=== PATIENT | female | born 1970 | race Caucasian/White ===

== ENCOUNTER 2020-12-15 10:57 | Emergency (ER) | payer OTHER ==
[~2020-12-15] VITALS: Ht 165.1 cm; Wt 107.5 kg
[~2020-12-15 10:57] MED LIST: AMITRIPTYLINE H25 MG PO; FOLBIC RF TABL1 EACH PO; IRON18 MG PO; PROVENTIL HFA6.7 GM INH
[2020-12-15] MEDS ORDERED: LEVOTHYROXINE25 MCG PO (11:19)
[2020-12-15] MEDS ORDERED: PROPRANOLOL HCL20 MG PO (11:19)
[2020-12-15] MEDS ORDERED: OSTERA TABLET1 EACH PO (11:20)
--- NOTE | 2020-12-15 12:37 | EKG ---
[facility] [address] [facility] [place] [address] Signed Sinus bradycardia Nonspecific ST abnormality Abnormal ECG No previous ECGs available Confirmed by CANDY CHAIREZ MD ([id number]) on 12/15/2020 12:37:26 PM Electronically Signed By: CANDY CHAIREZ MD 12/15/20 1237 PATIENT NAME: TIFFANI MCINTOSH Electrocardiogram DATE OF : 70 PHYSICIAN: CANDY CHAIREZ MD REPORT #: [id number] REPORT IS CONFIDENTIAL AND NOT TO BE RELEASED WITHOUT AUTHORIZATION
[2020-12-15] MEDS ORDERED: HYDROCODON-ACE1 EA10 PO (13:59)
[2020-12-15] MEDS ORDERED: ONDANSETRON ODT4 MG PO (13:59)
[2020-12-15] MEDS ORDERED: FLOMAX0.4 MG PO (13:59)
== END 2020-12-15 14:18 | disposition home or self-care (01) ==
LOC: ED 10:57
DX: N13.2 Hydronephrosis with renal and ureteral calculous obstruction (principal); Z87.891 Personal history of nicotine dependence; Z79.899 Other long term (current) drug therapy
CPT/HCPCS: 74176; 80053; 81001; 83690; 84703; 85025; 93005; 93010; 96374; 96375; 99284-25; J1885; J2405; J7030

== ENCOUNTER 2023-05-18 06:24 | Day surgery (SDC) | payer OTHER ==
[~2023-05-18] VITALS: Ht 165.1 cm; Wt 103.0 kg
[~2023-05-18 06:24] MED LIST changes: +FLOMAX0.4 MG PO; +HYDROCODON-ACE1 EA10 PO; +LEVOTHYROXINE25 MCG PO; +ONDANSETRON ODT4 MG PO; +OSTERA TABLET1 EACH PO; +PROPRANOLOL HCL20 MG PO
[2023-05-18 06:38] VITALS: BP 118/69
[2023-05-18] MEDS ORDERED: VENTOLIN HFA18 GM (06:42)
[2023-05-18] MEDS ORDERED: XANAX0.25 MG PO (06:43)
--- NOTE | 2023-05-18 07:14 | NUR ---
NO SERVICING REP IN ROOM. PT IN [facility]. CONSENTED TO PRAYER. PRAYED FOR SUCCESSFUL PROCEDURE AND AWARENESS OF DIVINE PRESENCE. DENIED ADDITIONAL NEEDS.
--- NOTE | 2023-05-18 08:29 | NUR ---
05/18/23 0829 Silvia Fernando 0807 PT ARRIVED IN PACU SLEEPY. ABD SOFT. 0815 DR AT BEDSIDE. 0829 AWAKENS TO VERBAL STIMULI, THEN FALLS BACK TO SLEEP.
[2023-05-18 09:04] VITALS: BP 120/82
--- NOTE | 2023-05-18 10:39 | OR ---
[facility] [address] [place], [place] [address] Signed DATE OF OPERATION: 05/18/2023 SURGEON: Laura Garcia MD PREOPERATIVE DIAGNOSES: 1. Posterior oropharynx and proximal esophageal dysphagia. 2. Small hiatal hernia. 3. Gastroesophageal reflux disease. 4. History of H pylori in 2013. 5. Hyperplastic colonic polyp in 2013 at the age of 43. 6. Screening. POSTOPERATIVE DIAGNOSES: 1. GE junction at 32 cm. 2. Small hiatal hernia (35-33 cm). 3. Mild gastroduodenitis. 4. Minimal internal hemorrhoids. PROCEDURES: 1. EGD with CLOtest and biopsies of the pyloric bulb, antrum, GE junction and midesophagus. 2. Colonoscopy without biopsy. ESTIMATED BLOOD LOSS: None. INDICATIONS: Justine is a 52-year-old obese female, asked to see me for both upper and lower endoscopy. She has been complaining of proximal esophageal dysphagia, but in retrospect it seems to be mostly in the posterior oropharynx and related to her anxiety. Her barium swallow was reviewed in April 2022. She had trouble getting the pill started into the proximal esophagus, but then after that it went through nicely. She actually swallowed liquid barium just fine. No mention of a hiatal hernia on the barium swallow study. I helped her with upper and lower endoscopy back in 2013 at the age of 43. She was anemic at that time. She had mild acid reflux. We thought she had a small hiatal hernia. She was H pylori positive and treated with amoxicillin, clarithromycin and Prilosec. We removed a very tiny hyperplastic polyp from her colon. We had asked her to follow up in 10 years. There is no family history of colon cancer or polyps. She is returning now basically with the same symptoms. She had done well with Versed and fentanyl in the past. She did take Xanax before she came in the last time. In the Electronically Signed By: LAURA GARCIA MD 05/18/23 1039 PATIENT NAME: JUSTINE MCINTOSH OPERATIVE REPORT DATE OF : 70 REPORT #: [id number] PHYSICIAN: LAURA GARCIA MD PCP: KIMBER WEI PAC REPORT IS CONFIDENTIAL AND NOT TO BE RELEASED WITHOUT AUTHORIZATION [facility] [address] [place] [id number] Signed office, I gave her pamphlets on both upper and lower endoscopy. We had reviewed those together. She understands the nature of the two tests. There is risk including, but not limited to gas bloating, crampy abdominal pain, bleeding, perforation requiring surgery, and missed diagnosis. We also reviewed the need for IV conscious sedation. She wanted to proceed with the Xanax along with the Versed and fentanyl once again. She had expressed understanding and wished to proceed. PROCEDURE NOTE: Justine was taken into our endoscopy suite and placed in a supine semi-recumbent position. She was given a total of 13 mg of Versed and 225 mcg of fentanyl to cover the case. She also took some Xanax preop before she came in the hospital. Overall, she did okay, but she certainly would benefit in the future from monitored anesthesia care with propofol infusion for her colonoscopies. She was awake and moaning during quite a bit of that. We used the bite block for the upper endoscopy. The adult gastroscope had been introduced and advanced under direct visualization of the camera into the duodenum. The duodenum was unremarkable. She had some mild inflammatory changes in the pyloric bulb and the distal half of her stomach. We took biopsies out of the pyloric bulb along with the antrum for pathologic review. An additional biopsy came out of the antrum for CLOtest. There were no ulcerations. Upon retroflexion of the scope, she appears to have just a very small hiatal hernia, maybe 35 back to 33 cm. The scope was withdrawn up to the area of the GE junction, which was compliant without stricture. There was no gastric or esophageal varices. No disruption to the Z-line. She had a little inflammation along the edge of the Z-line. We went ahead and took a biopsy in this area for pathologic review. Her distal, middle and upper esophagus appeared unremarkable. We took a biopsy of the midesophagus as well. The scope was then withdrawn and the gas suctioned out. The vocal cords, arytenoids and posterior oropharynx appears to be unremarkable. After this, the scope was completely withdrawn. Justine tolerated the upper endoscopy quite nicely. Justine was then rotated into the left lateral decubitus position. A digital rectal exam was performed. She has good sphincter tone. No external hemorrhoids. No masses. The adult colonoscope was introduced and advanced under direct visualization of the camera. It took multiple additional doses of Versed and fentanyl along with two people helping with abdominal compression to get the scope around and into the cecum itself. Her prep was quite excellent. We could easily see the appendiceal orifice and the ileocecal valve. The scope was then slowly withdrawn. We took pictures throughout for photodocumentation. There were no polyps. There were no diverticula. Upon retroflexion of the scope in the rectum, we saw just minimal internal hemorrhoid tissue. After this, the gas was suctioned out and the colonoscope removed. Overall, Justine tolerated the procedure well. However, she was frequently awake and moaning particularly for the colonoscopy. She would benefit from monitored anesthesia care with propofol infusion in the future. Electronically Signed By: LAURA GARCIA MD 05/18/23 1039 PATIENT NAME: JUSTINE MCINTOSH OPERATIVE REPORT DATE OF : 70 REPORT #: [id number] PHYSICIAN: LAURA GARCIA MD PCP: KIMBER WEI PAC REPORT IS CONFIDENTIAL AND NOT TO BE RELEASED WITHOUT AUTHORIZATION [facility] [address] [place] [address] Signed RECOMMENDATIONS: I will see Justine back in my office in 7 to 14 days to review her results. Again, she would benefit from monitored anesthesia care with propofol infusion in the future for her colonoscopies. MD DARNELL Mares/GTAITO /[id number] cc: MD Kimber Mares PA-C Copies: LAURA GARCIA MD, ERIKA PAC ~ Electronically Signed By: LAURA GARCIA MD 05/18/23 1039 PATIENT NAME: JUSTINE MCINTOSH OPERATIVE REPORT DATE OF : 70 REPORT #: [id number] PHYSICIAN: LAURA GARCIA MD PCP: KIMBER WEI PAC REPORT IS CONFIDENTIAL AND NOT TO BE RELEASED WITHOUT AUTHORIZATION
--- NOTE | 2023-05-20 12:33 | PATH ---
[facility] [address] [place], [place] [address] Signed SPECIMEN(S): A ANTRUM BULB BIOPSY SPECIMEN(S): B ANTRUM BIOPSY SPECIMEN(S): C GE JUNCTION BIOPSY SPECIMEN(S): D MID ESOPHAGEAL BIOPSY SPECIMEN SOURCE: A. ANTRUM BULB BIOPSY B. ANTRUM BIOPSY C. GE JUNCTION BIOPSY D. MID ESOPHAGEAL BIOPSY CLINICAL HISTORY: Esophageal dysphagia, history of colon polyps, screening. Dx: Gastritis, duodenitis, 8 mm hiatal hernia, internal hemorrhoids. FINAL PATHOLOGIC DIAGNOSIS: A. Antrum bulb biopsy: - Benign duodenal-type mucosa with focal slight chronic inflammation. - Preserved villous architecture, negative for increased epithelial inflammation. B. Antrum biopsy: - Benign gastric-type mucosa with focal slight chronic inflammation. - Negative for evidence of Helicobacter organisms on routine HE stained sections. C. Gastroesophageal junction biopsy: - Benign esophageal and gastric-type mucosa with focal slight chronic inflammation. - Negative for specialized intestinal metaplasia or dysplasia. D. Mid esophageal biopsy: - Benign esophageal epithelium, negative for increased epithelial eosinophils. JVR:[facility] MICROSCOPIC EXAMINATION: Histologic sections of all submitted blocks are examined by light microscopy. These findings, together with the gross examination, support the pathologic diagnosis. GROSS DESCRIPTION: A. The specimen, labeled and designated "Fartun Mcintosh " and designated on the requisition "stomach, antrum/pylorus bulb biopsy," is received in formalin and consists of 1 cabrera-brown soft tissue fragment PATIENT NAME: TIFFANI MCINTOSH PATHOLOGY DATE OF : 70 REPORT #: [id number] PHYSICIAN: OCHOA LAWRENCE PCP: JALYN WEI PAC REPORT IS CONFIDENTIAL AND NOT TO BE RELEASED WITHOUT AUTHORIZATION [facility] [address] [place], [place] [address] Signed measuring 0.3 x 0.5 cm and submitted entirely in (A1). B. The specimen, labeled and designated "Mcintosh, A, " and designated on the requisition "stomach, antrum biopsy," is received in formalin and consists of 1 cabrera soft tissue fragment measuring 0.2 x 0.6 cm and submitted entirely in (B1). C. The specimen, labeled and designated "Mcintosh, A, " and designated on the requisition "esophagus, GE junction biopsy," is received in formalin and consists of 1 cabrera soft tissue fragment measuring 0.3 x 0.4 cm and submitted entirely in (C1). D. The specimen, labeled and designated "Mcintosh, A, " and designated on the requisition "esophagus mid esophagus biopsy," is received in formalin and consists of 1 white-cabrera soft tissue fragment measuring 0.2 x 0.5 cm and submitted entirely in (D1). MMA (under the direct supervision of a pathologist) The Gross Description was prepared using a voice recognition system. The report was reviewed for accuracy; however, sound-alike word errors, addition and/or deletions may occur. If there is any question about this report, please contact Client Services. PERFORMING LABORATORY: Technical component was performed by [facility], [address] [place] [id number] (CLIA# [id number]). Professional interpretation was performed by [facility], [address] [place] [id number] (CLIA#: [id number]). Diagnostician: Doug Feng MD Pathologist Electronically Signed 05/20/2023 Copies: ~ PATIENT NAME: TIFFANI MCINTOSH PATHOLOGY DATE OF : 70 REPORT #: [id number] PHYSICIAN: OCHOA PATHOLOGY PCP: JALYN WEI PAC REPORT IS CONFIDENTIAL AND NOT TO BE RELEASED WITHOUT AUTHORIZATION
== END 2023-05-18 09:15 | disposition home or self-care (01) ==
LOC: OPS 06:24 → DS 06:24 → OPS 07:30
PROVIDERS: ATTEND Colon & Rectal Surgery
PROC: 0DB68ZX Excision of Stomach, Via Natural or Artificial Opening Endoscopic, Diagnostic (ICD-10-PCS; 2023-05-18)
PROC: 0DB18ZX Excision of Upper Esophagus, Via Natural or Artificial Opening Endoscopic, Diagnostic (ICD-10-PCS; 2023-05-18)
PROC: 0DJD8ZZ Inspection of Lower Intestinal Tract, Via Natural or Artificial Opening Endoscopic (ICD-10-PCS; principal; 2023-05-18 07:30)
PROC: 0DB28ZX Excision of Middle Esophagus, Via Natural or Artificial Opening Endoscopic, Diagnostic (ICD-10-PCS; 2023-05-18 07:30)
DX: Z12.11 Encounter for screening for malignant neoplasm of colon (principal); R13.10 Dysphagia, unspecified; Z86.010 Personal history of colon polyps; F41.9 Anxiety disorder, unspecified; E66.9 Obesity, unspecified; R25.1 Tremor, unspecified; E03.9 Hypothyroidism, unspecified; G62.9 Polyneuropathy, unspecified; Z68.37 Body mass index [BMI] 37.0-37.9, adult; K44.9 Diaphragmatic hernia without obstruction or gangrene; K29.90 Gastroduodenitis, unspecified, without bleeding; K64.8 Other hemorrhoids; K29.50 Unspecified chronic gastritis without bleeding
CPT/HCPCS: 36415; 87077; 99153; G0500; J2250; J3010; J7121